=== PATIENT | female | born 1960 | race African-American/Black ===

== ENCOUNTER 2019-04-27 12:24 | Day surgery (SDC) | payer OTHER, BC ==
[2019-04-23 17:12] VITALS: BMI 32.9
--- NOTE | 2019-04-27 11:44 | HP ---
[facility] - Chief Complaint Chief Complaint: right shoulder pain - Past Medical History Allergies/Adverse Reactions: Allergies Allergy/AdvReac Type Severity Reaction Status Date / Time No Known Drug Allergies Allergy Verified 04/23/19 17:33 - Current Medications Current Medications: Home Medications Medication Instructions Recorded Diazepam [Valium] 5 mg PO PRN PRN 04/23/19 Meloxicam 15 mg PO DAILY 04/23/19 Oxycodone HCl/Acetaminophen 1 - 2 tab PO Q6H #30 tab MDD 6 04/27/19 [Percocet 5-325 mg Tablet] Satellite Physical Exam - Physical Examination General Appearance: Well Nourished, Well Developed, Alert & Oriented x3 ENT: Clear Lung: Normal air movement Extremities: Other (right shoulder- + ttp, decr rom, + empty can, + neer, + garcia, nvi, MRI + rct) Neurological: Intact, Alert, Oriented Satellite Impression/Plan - Impression/Plan Impression: right shoulder rct Operative Procedure: right shoulder arthroscopy with RCR, SAD Date to be Performed: 04/27/19
[2019-04-27] MEDS ORDERED: DEXAMETHASONE SOD PHOSPHATE/PF 10 MG/ML SDV ONE (14:05)
[2019-04-27] MEDS ORDERED: ROPIVACAINE HCL 0.5% 30ML VIAL ONE (14:05)
[2019-04-27] MEDS ORDERED: MIDAZOLAM HCL 2 MG/2 ML SINGLE DOSE VIAL ONE ×2 (14:08)
[2019-04-27] MEDS ORDERED: ceFAZolin SODIUM 1 GM VIAL ONE (15:04)
[2019-04-27] MEDS ORDERED: ONDANSETRON 4 MG/2 ML VIAL IVPUSH PRN (15:28)
[2019-04-27] MEDS ORDERED: oxyCODONE HCL 5 MG TABLET PO PRN (15:28)
[2019-04-27] MEDS ORDERED: LACTATED RINGERS SOLUTION 1,000 ML IV SCH (15:30)
[2019-04-27] MEDS ORDERED: PROPOFOL 20 ML ONE (15:47)
--- NOTE | 2019-04-27 16:06 | OP ---
Operative Note - Note: Operative Date: 04/27/19 ([facility]) Pre-Operative Diagnosis: right shouder rct Operation: right shoulder arthroscopy with RCR, SAD Post-Operative Diagnosis: Same as Pre-op Surgeon: Brad Oh Solution Analyst: Yaron Lux Anesthesiologist/CREATIVE SPECIALIST: Denia Jeronimo Anesthesia: General, Local Specimens Removed: shavings Estimated Blood Loss (mls): 5
--- NOTE | 2019-04-27 17:25 | OP ---
DATE OF OPERATION: 04/27/2019 PREOPERATIVE DIAGNOSIS: Right rotator cuff tear. POSTOPERATIVE DIAGNOSIS: Right rotator cuff tear. PROCEDURE: Arthroscopy, right shoulder, subacromial decompression, distal clavicle excision, arthroscopic right rotator cuff repair. SURGICAL ATTENDING: Brad Oh MD EXHIBITION DESIGNER: PAZ Vickers ANESTHESIA: Regional and general. CLOSURE: Two Arthrex SwiveLock anchors with SutureTape, 3-0 nylon for skin. ESTIMATED BLOOD LOSS: Negligible. COMPLICATIONS: None. CONDITION: To the recovery room in stable condition. DESCRIPTION OF PROCEDURE: Patient was taken to the operating room on April 27, 2019. General anesthesia with IV sedation as well as regional block was administered by the anesthesiologist. IV Kefzol was administered prophylactically prior to the case. Patient was placed in the beach chair position with all prominences well padded. Right shoulder area was prepped and draped in the usual sterile fashion. First, a diagnostic arthroscopy of the glenohumeral joint was performed. A posterior portal was made 2 fingerbreadths below the acromion 1st with a 15 blade and a blunt trocar. Circumferential exam of the glenohumeral joint revealed the following: Intact glenoid. There were some grade 3 changes of the humeral head centrally. The labrum was intact circumferentially. The biceps and biceps anchor were intact. The subscapularis tendon was intact to its insertion. There were no loose bodies in the axillary pouch. Some mild synovitis was encountered throughout. Looking superiorly, the rotator cuff supraspinatus area was found to be torn with may be a small amount of tissue still remaining to the greater tuberosity. Looking from anterior towards posterior, the rest of the rotator cuff was found to be intact. The fluid was drained from the glenohumeral joint, and the trocar was removed. Posterior trocar was redirected in the subacromial space. An accessory lateral and anterior portal were made with a 15 blade, blunt trocar. A bursectomy was performed in the subacromial space by using a shaver and an ArthroCare device. The coracoacrominal ligament was identified and detached off of the anterior acromion and was visualized to drop inferiorly and was further debrided. A large subacromial spur was debrided using an acromionizer bur, and sufficient bone was removed to elevate and increase the space in the subacromial region. The distal clavicle was co-planed with the undersurface of the acromion as well gaining more space for the rotator cuff. Looking inferiorly, the rotator cuff was at 1st blush found to be intact; however, gentle probing revealed that the supraspinatus tendon was attached with minimal attachment. Gentle probing was able to tease away what was left of the insertion exposing the rotator cuff tear. A shaver was placed inferior to debride any primitive healing tissue from the rotator cuff. The bur was used to stimulate the bone in this area to expose some bleeding bony surface. Two SutureTape sutures were placed in a horizontal mattress in the rotator cuff by use of a JUNTA.CL self-passing suture passer. These sutures were docked to an anterior portal. Each set of sutures were then retrieved individually and were fixated to the greater tuberosity by use of a SwiveLock anchor. The sutures were cut flush with the bone. Probing and visualization revealed excellent fixation of the rotator cuff to the greater tuberosity with restoring of good tension in the body of the rotator cuff. Passive range of motion revealed good stability of the repair with good space for the rotator cuff achieved in the subacromial space. The fluid was drained from the subacromial space and the portals were closed with 3-0 nylon sutures. Sterile Aquacel dressing was applied followed by a small immobilizer. Patient was awakened from anesthesia and transferred to the recovery room in stable condition. No complications. Estimated blood loss negligible. Dulce [id number]
[2019-04-27 19:11] VITALS: BP 130/82; PULSE 65; TEMP 98
--- NOTE | 2019-04-29 17:03 | PATH ---
Surgical Pathology Report Patient Name: PHILIPPE CHILDS [facility]. Rec. #: [id number] /Age/Gender: 1960 (Age: 58) / F Account: [id number] Location: [facility] SURGICAL Taken: 04/27/2019 Received: 04/28/2019 Reported: 04/29/2019 Physicians: Brad Oh M.D. Specimen(s) Received RIGHT SHOULDER SHAVINGS Clinical History Right shoulder impingement syndrome Final Diagnosis SHOULDER SHAVINGS, RIGHT, ARTHROSCOPY AND ROTATOR CUFF REPAIR: FRAGMENTS OF BENIGN CARTILAGE, BONE, DENSE FIBROCONNECTIVE TISSUE, ADIPOSE TISSUE, AND SKELETAL MUSCLE. Electronically Signed Kerline Gonzáles M.D. Gross Description Received in formalin, labeled "right shoulder shavings," is a 5.0 x 4.0 x 0.3 cm. aggregate of daly-yellow soft tissue fragments. A member services representative portion is submitted in one cassette. 04/28/2019 saudi04/28/2019
== END 2019-04-27 18:55 | disposition home or self-care (01) ==
LOC: JASU-SURG 12:24
PROVIDERS: ATTEND Orthopaedic Surgery
PROC: 0PB94ZZ Excision of Right Clavicle, Percutaneous Endoscopic Approach (ICD-10-PCS; 2019-04-27)
PROC: 0LQ14ZZ Repair Right Shoulder Tendon, Percutaneous Endoscopic Approach (ICD-10-PCS; principal; 2019-04-27 14:30)
PROC: 0RNJ4ZZ Release Right Shoulder Joint, Percutaneous Endoscopic Approach (ICD-10-PCS; 2019-04-27 14:30)
DX: M75.101 Unspecified rotator cuff tear or rupture of right shoulder, not specified as traumatic (principal)
CPT/HCPCS: 88304-TC; 94760